=== PATIENT | male | born 1975 | race Caucasian/White ===

== ENCOUNTER 2018-03-24 13:07 | Day surgery (SDC) | payer BC ==
[~2018-03-24 13:07] MED LIST: Lactated Ringers 1,000 ML IV SCH; Midazolam 1 MG/ML 2 ML SDV ONE; Propofol 200 MG/20 ML SDV ONE; fentaNYL 100 MCG/2 ML SDV ONE
--- NOTE | 2018-03-24 13:36 | PCM.PREANE ---
Preanesthetic Assessment - Procedure Proposed Procedure: Colonoscopy and EGD - Anesthesia/Transfusion/Family Hx Anesthesia History: Prior Anesthesia Without Reaction Family History of Anesthesia Reaction: No Transfusion History: No Prior Transfusion(s) Intubation History: Unknown - Review of Systems General: Other (weight loss) Pulmonary: No Symptoms Cardiovascular: No Symptoms Gastrointestinal: Other (bloating) Neurological: No Symptoms Other: Reports: Depression, Anxiety - Physical Assessment NPO Status Date: 03/23/18 NPO Status Time: 22:00 Height: 6 ft Weight: 320 lb ASA Class: 2 Mental Status: Alert & Oriented x3 Airway Class: Mallampati = 4 Dentition: Reports: Normal Dentition Thyro-Mental Finger Breadths: 3 (high and prominent thyroid cartilage) Mouth Opening Finger Breadths: 2 (does not open widely) ROM/Head Extension: Limited/Partial (full neck) Lungs: Clear to Auscultation, Normal Respiratory Effort Cardiovascular: Regular Rate, Regular Rhythm, No Murmurs - Allergies Allergies/Adverse Reactions: Allergies Allergy/AdvReac Type Severity Reaction Status Date / Time No Known Allergies Allergy Verified 03/21/18 08:02 - Blood Blood Available: No Product(s) Available: None - Anesthesia Plan Pre-Op Medication Ordered: None - Acknowledgements Anesthesia Type Planned: MAC Pt an Appropriate Candidate for the Planned Anesthesia: Yes Alternatives and Risks of Anesthesia Discussed w Pt/Guardian: Yes Pt/Guardian Understands and Agrees with Anesthesia Plan: Yes PreAnesthesia Questionnaire Cardiovascular History: Reports: Other (See Below) Other Cardiovascular History: hx of murmur Gastrointestinal History: Reports: Irritable Bowel Syndrome Musculoskeletal History: Reports: Arthritis Psychiatric History: Reports: Anxiety, Depression, Other (See Below) Other Psychiatric History: agoraphobia Endocrine/Metabolic History: Reports: Obesity/BMI 30+ - Past Surgical History Head Surgeries/Procedures: Reports: None HEENT Surgical History: Reports: Other (See Below) Other HEENT Surgeries/Procedures: rt ear surgery x2, with implanted synthetic bone GI Surgical History: Reports: Appendectomy, Colonoscopy - SUBSTANCE USE Smoking Status *Q: Former Smoker Tobacco Use Within Last Twelve Months: No Recreational Drug Use History: No - HOME MEDS Home Medications: Home Meds Cholecalciferol (Vitamin D3) [Vitamin D3] 50,000 units PO ASDIRECTED 03/21/18 [ History] Venlafaxine HCl [Venlafaxine ER] 100 mg PO BID 03/21/18 [History] - CURRENT (IN HOUSE) MEDS Current Meds: Current Medications Lactated Ringer's (Ringers, Lactated) 1,000 mls @ 125 mls/hr IV ASDIRECTED MELVI Discontinued Medications Fentanyl (Sublimaze) Confirm Administered Dose 100 mcg .ROUTE .STK-MED ONE Stop: 03/24/18 10:45 Midazolam HCl (Versed 1 Mg/Ml) Confirm Administered Dose 2 mg .ROUTE .STK-MED ONE Stop: 03/24/18 10:45 Propofol (Diprivan 20 Ml) Confirm Administered Dose 200 mg .ROUTE .STK-MED ONE Stop: 03/24/18 10:45
[2018-03-24] MEDS ORDERED: Propofol 200 MG/20 ML SDV ONE ×2 (13:54→14:02)
--- NOTE | 2018-03-24 14:35 | PCM.POSTAN ---
POST ANESTHESIA ASSESSMENT - MENTAL STATUS Mental Status: Alert, Oriented - RESPIRATORY Respiratory Status: Respiratory Rate WNL, Airway Patent, O2 Saturation Stable - CARDIOVASCULAR CV Status: Pulse Rate WNL, Blood Pressure Stable - GASTROINTESTINAL GI Status: No Symptoms - POST OP HYDRATION Hydration Status: Adequate & Stable
--- NOTE | 2018-03-24 14:38 | PCM.OPNOTE ---
- General Post-Op/Procedure Note Date of Surgery/Procedure: 03/24/18 Operative Procedure(s): egd w bx. colonoscopy w snare polypectomy Findings: see dict [id number] Pre Op Diagnosis: BRBPR and wt loss Post-Op Diagnosis: Same Anesthesia Technique: Moderate Sedation Primary Surgeon: Lamine Joel Pathology: 1) egd bx 2) 2 mm sessile polyp at 1 ring distal to Ileocecal valve Complications: None Condition: Good
--- NOTE | 2018-03-24 14:51 | PCM48HPAN ---
Post Anesthesia Note - EVALUATION WITHIN 48HRS OF ANESTHETIC Vital Signs in Normal Range: Yes Patient Participated in Evaluation: Yes Respiratory Function Stable: Yes Airway Patent: Yes Cardiovascular Function Stable: Yes Hydration Status Stable: Yes Pain Control Satisfactory: Yes Nausea and Vomiting Control Satisfactory: Yes Mental Status Recovered: Yes Resp Rate: 21 - COMMENTS/OBSERVATIONS Free Text/Narrative:: no anesthesia problems
[2018-03-24 14:53] VITALS: BP 130/67
--- NOTE | 2018-03-24 16:07 | OR ---
SURGEON: Lamine Joel MD DATE OF PROCEDURE: 03/24/2018 PREOPERATIVE DIAGNOSES: 1. Weight loss. 2. Bright red blood per rectum. PROCEDURES PERFORMED: 1. EGD with biopsy. 2. Colonoscopy with snare polypectomy. PROCEDURE IN DETAIL: EGD: The patient was taken to the endoscopy room, and with the [employer], Diprivan was administered. A well-lubricated EGD scope was gently inserted through the oropharynx, down the esophagus, passing through the gastroesophageal junction, into the stomach. The mucosa was examined upon the passage. Any etiology will be noted. Once in the stomach, we continued to advance to the distal antrum, passed through the pylorus into the second portion of the duodenum. Again, the mucosa was examined for any abnormality and etiology. The scope was then retrieved back to the stomach and then retroflexed to look at the fundus of the stomach. If a biopsy was indicated, we will biopsy the antrum, body, and gastroesophageal junction. The air will be sucked out while the scope is retrieved to reduce the patient's discomfort. The patient tolerated the procedure well. There were no intraoperative complications. Dr. Joel was present through the whole procedure. Prior to surgery, a time-out had been called, the patient identified, procedure identified and antibiotic administered. The patient was taken to the endoscopy room. A time out was called, patient identified, and procedure identified. Diprivan was then administrated. Patient went from awake to sleep, hearing doctor talking or door closing is normal. Perineum inspection and digital examination were then performed. A well- lubricated colonoscope was gently inserted through the rectum, advanced past the rectosigmoid junction, the descending colon, splenic flexure, transverse colon, hepatic flexure, ascending colon, arrived to the cecum. Cecum was identified as dictated in the finding. Then the scope was carefully withdrawn while attention was paid to the mucosal surface for any abnormality. Air will be sucked out during the scope withdrawal. At the rectum, retroflexed to examine any rectal diseases, fistula or hemorrhoids. During mucosal examination, abnormality or polyp encountered. Using snare equipment, the abnormality or the polyp was then snared off using electrocautery. The Patient tolerated procedure well. There were no intraoperative complications, and Dr. Joel was present throughout the whole procedure. EGD FINDINGS: 1. The patient is easily sedated with [employer] and Diprivan. The patient is soundly snoring. 2. The patient's oropharynx and proximal esophagus are free of disease, stricture, or inflammation. Distal esophagus at GE junction at 40 shows mild salmon-colored change consistent with mild acid reflux. Stomach rugae is normal in appearance. There is no food, bile, blood, or ulcer observed. Antrum is a little bit inflamed. Again, the duodenum was grossly normal. Scope retrieved back to the stomach, retroflexed to look at the fundus of stomach. There was no hiatal hernia. Biopsy done at antrum, body, and GE junction at 40 and sucked out the air while scope pulling out. COLONOSCOPY FINDINGS: 1. The patient is easily sedated with [employer] and Diprivan. The patient is soundly snoring. 2. The patient's bowel prep is marginally acceptable, very bad bowel prep. This is a compromised study because the margin is almost not acceptable. There is no solid stool but there is very thick liquid stool coating the mucosa and compromised study. It is a very compromised study. Cecum indicated by ileocecal fold, one-to-one indentation. Light emittance is not observed. Appendix orifice is observed. The mucosa examined with scope pulling out with constant irrigation. The patient has 2 mm sessile polyp, about one ring distal to the ileocecal fold, and it was removed with snare polypectomy and captured and sent for pathology. Otherwise, the patient does not have other disease. No diverticulosis, polyp, mass, growth, inflammation, stricture, ulceration, AV malformation. Has no other polyp other than the one that we captured. The patient has mild internal hemorrhoids and has one, like a large skin tag in the anal opening. It is not an external hemorrhoid, a large skin tag. This patient would benefit from repeat colonoscopy 10 years from today or if the pathology of the polyp indicated otherwise or if clinically indicated otherwise. MARIAN / GILBERTO /[id number]
== END 2018-03-24 14:55 | disposition home or self-care (01) ==
LOC: MW.SDS 13:07
PROVIDERS: ATTEND Surgery
DX: R63.4 Abnormal weight loss (principal); K62.5 Hemorrhage of anus and rectum; K63.5 Polyp of colon; K64.8 Other hemorrhoids; K64.4 Residual hemorrhoidal skin tags; K29.50 Unspecified chronic gastritis without bleeding; K21.0 Gastro-esophageal reflux disease with esophagitis; Z79.899 Other long term (current) drug therapy
CPT/HCPCS: 43239; 45385; J2250; J3010; J7120; J2704

== ENCOUNTER 2018-05-12 12:21 | Day surgery (SDC) | payer BC ==
[~2018-05-12 12:21] MED LIST changes: +Bupivacaine 25%/EPINEPHrine/PF 30 ML ONE; +Clindamycin Phosphate in D5W 600 MG in Premix Bag 1 BAG IV ONE; +Lidocaine 2% Jelly 30 ML Tube ONE; -Midazolam 1 MG/ML 2 ML SDV ONE; -Propofol 200 MG/20 ML SDV ONE; -fentaNYL 100 MCG/2 ML SDV ONE
[2018-05-12] MEDS ORDERED: Clindamycin Phosphate in D5W 50 ML ONE (12:26)
[2018-05-12] MEDS ORDERED: Ondansetron 4 MG/2 ML SDV ONE (12:44)
[2018-05-12] MEDS ORDERED: Propofol 200 MG/20 ML SDV ONE (12:44)
[2018-05-12] MEDS ORDERED: fentaNYL 100 MCG/2 ML SDV ONE (12:44)
[2018-05-12] MEDS ORDERED: Midazolam 1 MG/ML 2 ML SDV ONE (12:44)
[2018-05-12] MEDS ORDERED: Dexamethasone 4 MG/ML 5 ML MDV ONE (12:46)
--- NOTE | 2018-05-12 12:47 | PCM.PREANE ---
Preanesthetic Assessment - Anesthesia/Transfusion/Family Hx Anesthesia History: Prior Anesthesia Without Reaction Family History of Anesthesia Reaction: No Transfusion History: No Prior Transfusion(s) Intubation History: Unknown - Review of Systems General: No Symptoms Pulmonary: No Symptoms Cardiovascular: No Symptoms Gastrointestinal: No Symptoms Neurological: No Symptoms Other: Reports: None - Physical Assessment NPO Status Date: 05/11/18 O2 Sat by Pulse Oximetry: 96 Respiratory Rate: 15 Vital Signs: Last Vital Signs Temp 36.5 C 05/12/18 12:30 Pulse 55 L 05/12/18 12:30 Resp 15 05/12/18 12:30 BP 107/56 L 05/12/18 12:30 Pulse Ox 96 05/12/18 12:30 Height: 1.83 m Weight: 141.974 kg ASA Class: 2 Mental Status: Alert & Oriented x3 Airway Class: Mallampati = 3 Dentition: Reports: Normal Dentition ROM/Head Extension: Full Lungs: Clear to Auscultation, Normal Respiratory Effort Cardiovascular: Regular Rate, Regular Rhythm - Allergies Allergies/Adverse Reactions: Allergies Allergy/AdvReac Type Severity Reaction Status Date / Time No Known Allergies Allergy Verified 05/05/18 13:16 - Blood Blood Available: No - Anesthesia Plan Pre-Op Medication Ordered: None - Acknowledgements Anesthesia Type Planned: General Anesthesia Pt an Appropriate Candidate for the Planned Anesthesia: Yes Alternatives and Risks of Anesthesia Discussed w Pt/Guardian: Yes Pt/Guardian Understands and Agrees with Anesthesia Plan: Yes Additional Comments: PMH: MO PLAN: prone, GET PreAnesthesia Questionnaire HEENT History: Reports: Hard of Hearing Other HEENT History: [place] in right ear Cardiovascular History: Reports: Other (See Below) Other Cardiovascular History: hx of murmur Gastrointestinal History: Reports: Irritable Bowel Syndrome Musculoskeletal History: Reports: Arthritis Neurological History: Reports: Other (See Below) Other Neuro History: degenerative disc disease in lower back Psychiatric History: Reports: Anxiety, Depression, Panic Attack, Other (See Below) Other Psychiatric History: agoraphobia Endocrine/Metabolic History: Reports: Obesity/BMI 30+ - Past Surgical History Head Surgeries/Procedures: Reports: None HEENT Surgical History: Reports: Other (See Below) Other HEENT Surgeries/Procedures: rt ear surgery x2, with implanted synthetic bone GI Surgical History: Reports: Appendectomy, Colonoscopy - SUBSTANCE USE Smoking Status *Q: Never Smoker Recreational Drug Use History: No - HOME MEDS Home Medications: Home Meds Cholecalciferol (Vitamin D3) [Vitamin D3] 50,000 units PO ASDIRECTED 03/21/18 [ History] Venlafaxine HCl [Venlafaxine ER] 100 mg PO BID 03/21/18 [History] Diclofenac Sodium [Voltaren] 50 mg PO ASDIRECTED PRN 05/05/18 [History] - CURRENT (IN HOUSE) MEDS Current Meds: Current Medications Lactated Ringer's (Ringers, Lactated) 1,000 mls @ 125 mls/hr IV ASDIRECTED MELVI Discontinued Medications Gelatin (Gelfoam Size 100) Confirm Administered Dose 1 each TOP .STK-MED ONE Stop: 05/12/18 11:59 Clindamycin Phosphate 600 mg/ (Premix) 50 mls @ 100 mls/hr IV ONETIME ONE Stop: 05/12/18 05:29 Last Admin: 05/12/18 12:26 Dose: 100 mls/hr Bupivacaine HCl/Epinephrine Bitart (Sensorc Mpf 0.25%-Epi 1:[id number]) Confirm Administered Dose 30 mls @ as directed .ROUTE .STK-MED ONE Stop: 05/12/18 11:59 Clindamycin Phosphate (Cleocin In D5w) Confirm Administered Dose 50 mls @ as directed .ROUTE .STK-MED ONE Stop: 05/12/18 12:27 Lidocaine HCl (Xylocaine 2% Jelly) Confirm Administered Dose 30 ml .ROUTE .STK- MED ONE Stop: 05/12/18 11:59
[2018-05-12] MEDS ORDERED: Rocuronium 10 MG/ML 10 ML Syringe ONE (13:02)
--- NOTE | 2018-05-12 14:08 | PCM.OPNOTE ---
- General Post-Op/Procedure Note Date of Surgery/Procedure: 05/12/18 Operative Procedure(s): anal tag excisional bx Findings: a large broad base anal tag excised en bloc, 1.5 cm length and 0.4 cm diameter.[id number] Pre Op Diagnosis: anal tag Post-Op Diagnosis: Same Anesthesia Technique: General ET Tube Primary Surgeon: Lamine Joel Pathology: sent Complications: None Condition: Good
--- NOTE | 2018-05-12 15:07 | PCM48HPAN ---
Post Anesthesia Note - EVALUATION WITHIN 48HRS OF ANESTHETIC Vital Signs in Normal Range: Yes Patient Participated in Evaluation: Yes Respiratory Function Stable: Yes Airway Patent: Yes Cardiovascular Function Stable: Yes Hydration Status Stable: Yes Pain Control Satisfactory: Yes Nausea and Vomiting Control Satisfactory: Yes Mental Status Recovered: Yes Resp Rate: 16
[2018-05-12 15:21] VITALS: BP 103/55
--- NOTE | 2018-05-12 17:38 | OR ---
SURGEON: Lamine Joel MD DATE OF PROCEDURE: 05/12/2018 PREOPERATIVE DIAGNOSIS: Anal Tag. POSTOPERATIVE DIAGNOSIS: Anal Tag. PROCEDURE PERFORMED: Excisional biopsy. COMPLICATIONS: None. FINDING: Very large anal tag, length about 1.5 cm and diameter 0.4 cm, removed en bloc. PROCEDURE IN DETAIL: The patient was taken to operating room, placed in supine position. Upon induction of general endotracheal anesthesia, the patient was re-positioned into a left decubitus position, left side down, right side up, and used a sand bag. The patient was then prepped and draped in sterile fashion. Time-out was being called, the patient identified, procedure identified, antibiotic given. Procedure was then started. Local anesthetic 1% lidocaine was infiltrated around the anal tag. Anal tag is at the distance around 7 o'clock in the prone position, is 1.5 cm in length and 0.4 cm in diameter. Using a 15 blade, was removed and as it is broad base, he has some bleeding and this was then closed with 3-0 Vicryl. The patient was then repositioned, awakened, extubated, and transferred to recovery in hemodynamically stable condition. The patient tolerated the procedure well. There were no intraoperative complications. MARIAN / GILBERTO /[id number]
== END 2018-05-12 15:15 | disposition home or self-care (01) ==
LOC: MW.SDS 12:21
PROVIDERS: ATTEND Surgery
DX: K64.4 Residual hemorrhoidal skin tags (principal); E66.9 Obesity, unspecified; F41.9 Anxiety disorder, unspecified; F32.9 Major depressive disorder, single episode, unspecified; Z87.891 Personal history of nicotine dependence; Z79.899 Other long term (current) drug therapy
CPT/HCPCS: 46220; J1100; J2250; J2405; J2704; J3010; J3490; J7120

== ENCOUNTER 2021-02-09 14:29 | Observation (INO) | payer MEDICARE, OTHER ==
[2021-02-09] MEDS ORDERED: Sodium Chloride 0.9% 10 ML Syringe FLUSH PRN (14:37)
[2021-02-09] MEDS ORDERED: Sodium Chloride 0.9% 2.5 ML Syringe FLUSH PRN (14:37)
[2021-02-09] MEDS ORDERED: Ondansetron 4 MG/2 ML SDV IVPUSH ONE (14:37)
[2021-02-09] MEDS ORDERED: HYDROmorphone 1 MG/ML Syringe IVPUSH ONE ×2 (14:37→17:14)
[2021-02-09] MEDS ORDERED: Sodium Chloride 0.9% 1,000 ML IV ONE (14:37)
--- NOTE | 2021-02-09 14:42 | EDM.PDOC ---
ED HPI GENERAL MEDICAL PROBLEM - General Chief Complaint: Abdominal Pain Stated Complaint: ABDOMINAL PAIN Time Seen by Provider: 02/09/21 14:35 Source of Information: Reports: Patient History Limitations: Reports: No Limitations - History of Present Illness INITIAL COMMENTS - FREE TEXT/NARRATIVE: 45-year-old male past medical history anxiety, depression, recent right shoulder surgery 1 week ago in [place] presents for abdominal pain, no bowel movement in 69 hours. Patient notes that he has been on narcotic pain medication from his recent surgery. He has been on multiple stool softeners. He feels nausea but has not had any vomiting. He describes his abdominal pain is diffuse, coming in waves every 10 to 15 minutes, associated with nausea. He notes a prior surgical history of appendectomy that was complicated by ileus. This was several years ago Right Upper Abdomen Pain Score (Numeric/FACES): 6 - Related Data Allergies Allergy/AdvReac Type Severity Reaction Status Date / Time No Known Allergies Allergy Verified 02/09/21 14:36 Home Meds: Home Meds Hydrocodone/Acetaminophen [Vicodin Hp 10-300 mg Tablet] 1 dose PO ASDIRECTED 02/09/21 [History] ondansetron HCL [Zofran] 4 mg PO ASDIRECTED 02/09/21 [History] oxyCODONE 5 mg PO ASDIRECTED 02/09/21 [History] Past Medical History HEENT History: Reports: Hard of Hearing Other HEENT History: [place] in right ear Cardiovascular History: Reports: Other (See Below) Other Cardiovascular History: hx of murmur Gastrointestinal History: Reports: Irritable Bowel Syndrome Musculoskeletal History: Reports: Arthritis Neurological History: Reports: Other (See Below) Other Neuro History: degenerative disc disease in lower back Psychiatric History: Reports: Anxiety, Depression, Panic Attack, Other (See Below) Other Psychiatric History: agoraphobia Endocrine/Metabolic History: Reports: Obesity/BMI 30+ - Past Surgical History Head Surgeries/Procedures: Reports: None HEENT Surgical History: Reports: Other (See Below) Other HEENT Surgeries/Procedures: rt ear surgery x2, with implanted synthetic bone GI Surgical History: Reports: Appendectomy, Colonoscopy ED ROS GENERAL - Review of Systems Review Of Systems: Comprehensive ROS is negative, except as noted in HPI. ED EXAM, GENERAL - Physical Exam Exam: See Below Exam Limited By: No Limitations General Appearance: Alert, WD/WN, No Apparent Distress Head: Atraumatic, Normocephalic Neck: Normal Inspection Respiratory/Chest: No Respiratory Distress, Lungs Clear, Normal Breath Sounds, No Accessory Muscle Use Cardiovascular: Normal Peripheral Pulses, Regular Rate, Rhythm GI/Abdominal: Other (mildly distended, diffusely TTP with guarding) Extremities: Normal Inspection Neurological: Alert Psychiatric: Normal Affect, Normal Mood, Anxious Skin Exam: Warm, Dry, Intact, Normal Color #1 Interpretation EKG Date: 02/09/21 Time: 15:47 Rhythm: NSR Rate (Beats/Min): 57 [place]: Normal P-Wave: Present QRS: Normal ST-T: Normal QT: Normal [place]/PQ Interval: 163 Comparison: NA - No Prior EKG EKG Interpretation Comments: normal EKG Course - Vital Signs Last Recorded V/S: Last Vital Signs Temp 97.3 F 02/09/21 14:38 Pulse 63 02/09/21 14:38 Resp 16 02/09/21 14:38 BP 135/91 H 02/09/21 14:38 Pulse Ox 100 02/09/21 14:38 - Orders/Labs/Meds Orders: Active Orders 24 hr Category Date Time Status EKG Documentation Completion [RC] STAT Care 02/09/21 14:37 Active Gastrointestinal Tube Mgmt [RC] ASDIRECTED Care 02/09/21 18:08 Active Abdomen 1V Upright [CR] Stat Exams 02/09/21 18:08 Ordered Chest 1V Frontal [CR] Stat Exams 02/09/21 18:08 Ordered Sodium Chloride 0.9% [Saline Flush] Med 02/09/21 14:37 Active 10 ml FLUSH ASDIRECTED PRN Sodium Chloride 0.9% [Saline Flush] Med 02/09/21 14:37 Active 2.5 ml FLUSH ASDIRECTED PRN NG [Nasogastric Orogastric Tube Insertion] [OM.PC] Stat Oth 02/09/21 18:08 Ordered Saline Lock Insert [OM.PC] Stat Oth 02/09/21 14:38 Ordered Medication Orders Sodium Chloride (Sodium Chloride 0.9% 10 Ml Syringe) 10 ml FLUSH ASDIRECTED PRN PRN Reason: Keep Vein Open Last Admin: 02/09/21 14:51 Dose: 10 ml Documented by: GABE Sodium Chloride (Sodium Chloride 0.9% 2.5 Ml Syringe) 2.5 ml FLUSH ASDIRECTED PRN PRN Reason: Keep Vein Open Last Admin: 02/09/21 14:52 Dose: 2.5 ml Documented by: GABE Labs: Laboratory Tests 02/09/21 02/09/21 02/09/21 Range/Units 14:55 14:55 15:23 WBC 11.69 H (4.0-11.0) K/uL RBC 5.54 (4.50-5.90) M/uL Hgb 16.8 (13.0-17.0) g/dL Hct 50.1 H (38.0-50.0) % MCV 90.4 (80.0-98.0) fL MCH 30.3 (27.0-32.0) pg MCHC 33.5 (31.0-37.0) g/dL RDW Std Deviation 45.7 (28.0-62.0) fl RDW Coeff of Rosalino 14 (11.0-15.0) % Plt Count 228 (150-400) K/uL MPV 10.30 (7.40-12.00) fL Neut % (Auto) 77.9 (48.0-80.0) % Lymph % (Auto) 12.7 L (16.0-40.0) % [place] % (Auto) 8.6 (0.0-15.0) % Eos % (Auto) 0.6 (0.0-7.0) % Baso % (Auto) 0.2 (0.0-1.5) % Neut # (Auto) 9.1 H (1.4-5.7) K/uL Lymph # (Auto) 1.5 (0.6-2.4) K/uL [place] # (Auto) 1.0 H (0.0-0.8) K/uL Eos # (Auto) 0.1 (0.0-0.7) K/uL Baso # (Auto) 0.0 (0.0-0.1) K/uL Nucleated RBC % 0.0 /100WBC Nucleated RBCs # 0 K/uL INR APTT (18.6-31.3) SEC Sodium 135 L (136-148) mmol/L Potassium 4.4 (3.5-5.1) mmol/L Chloride 100 (98-107) mmol/L Carbon Dioxide 24.5 (21.0-32.0) mmol/L BUN 13 (7.0-18.0) mg/dL Creatinine 1.6 H (0.8-1.3) mg/dL Est Cr Clr Drug Dosing 62.65 mL/min Estimated GFR (MDRD) 46.6 ml/min Glucose 125 H (74-106) mg/dL Lactic Acid 1.9 (0.4-2.0) mmol/L Calcium 9.9 (8.5-10.1) mg/dL Magnesium 2.2 (1.8-2.4) mg/dL Total Bilirubin 1.0 (0.2-1.0) mg/dL AST 23 (15-37) IU/L ALT 44 (14-63) IU/L Alkaline Phosphatase 72 (46-116) U/L Total Protein 7.7 (6.4-8.2) g/dL Albumin 3.8 (3.4-5.0) g/dL Globulin 3.9 (2.6-4.0) g/dL Albumin/Globulin Ratio 1.0 (0.9-1.6) Lipase 189 (73-393) U/L 02/09/21 Range/Units 15:23 WBC (4.0-11.0) K/uL RBC (4.50-5.90) M/uL Hgb (13.0-17.0) g/dL Hct (38.0-50.0) % MCV (80.0-98.0) fL MCH (27.0-32.0) pg MCHC (31.0-37.0) g/dL RDW Std Deviation (28.0-62.0) fl RDW Coeff of [place] (11.0-15.0) % Plt Count (150-400) K/uL MPV (7.40-12.00) fL Neut % (Auto) (48.0-80.0) % Lymph % (Auto) (16.0-40.0) % [place] % (Auto) (0.0-15.0) % Eos % (Auto) (0.0-7.0) % Baso % (Auto) (0.0-1.5) % Neut # (Auto) (1.4-5.7) K/uL Lymph # (Auto) (0.6-2.4) K/uL [place] # (Auto) (0.0-0.8) K/uL Eos # (Auto) (0.0-0.7) K/uL Baso # (Auto) (0.0-0.1) K/uL Nucleated RBC % /100WBC Nucleated RBCs # K/uL INR 1.00 APTT 28.0 (18.6-31.3) SEC Sodium (136-148) mmol/L Potassium (3.5-5.1) mmol/L Chloride (98-107) mmol/L Carbon Dioxide (21.0-32.0) mmol/L BUN (7.0-18.0) mg/dL Creatinine (0.8-1.3) mg/dL Est Cr Clr Drug Dosing mL/min Estimated GFR (MDRD) ml/min Glucose (74-106) mg/dL Lactic Acid (0.4-2.0) mmol/L Calcium (8.5-10.1) mg/dL Magnesium (1.8-2.4) mg/dL Total Bilirubin (0.2-1.0) mg/dL AST (15-37) IU/L ALT (14-63) IU/L Alkaline Phosphatase (46-116) U/L Total Protein (6.4-8.2) g/dL Albumin (3.4-5.0) g/dL Globulin (2.6-4.0) g/dL Albumin/Globulin Ratio (0.9-1.6) Lipase (73-393) U/L Meds: Medications Generic Name Dose Route Start Last Admin Trade Name Freq PRN Reason Stop Dose Admin Sodium Chloride 10 ml 02/09/21 14:37 02/09/21 14:51 Sodium Chloride 0.9% 10 Ml Syringe FLUSH 10 ml ASDIRECTED PRN Administration Keep Vein Open Sodium Chloride 2.5 ml 02/09/21 14:37 02/09/21 14:52 Sodium Chloride 0.9% 2.5 Ml Syringe FLUSH 2.5 ml ASDIRECTED PRN Administration Keep Vein Open Discontinued Medications Generic Name Dose Route Start Last Admin Trade Name Freq PRN Reason Stop Dose Admin Hydromorphone HCl 1 mg 02/09/21 14:37 02/09/21 14:50 Hydromorphone 1 Mg/Ml Syringe IVPUSH 02/09/21 14:38 1 mg ONETIME ONE Administration Hydromorphone HCl 1 mg 02/09/21 17:14 02/09/21 17:28 Hydromorphone 1 Mg/Ml Syringe IVPUSH 02/09/21 17:15 1 mg ONETIME ONE Administration Sodium Chloride 1,000 mls @ 999 mls/hr 02/09/21 14:37 02/09/21 14:49 Normal Saline IV 02/09/21 15:37 999 mls/hr .Bolus ONE Administration Iopamidol 100 ml 02/09/21 16:43 02/09/21 16:44 Iopamidol 755 Mg/Ml 500 Ml Multipack Bottle IVPUSH 02/09/21 16:44 100 ml ONETIME ONE Administration Ondansetron HCl 4 mg 02/09/21 14:37 02/09/21 14:48 Ondansetron 4 Mg/2 Ml Sdv IVPUSH 02/09/21 14:38 4 mg ONETIME ONE Administration - Re-Assessments/Exams Free Text/Narrative Re-Assessment/Exam: 02/09/21 14:41 We will get labs including a lactate. Will get CTA imaging of the abdomen and pelvis to assess for more likely SBO versus ileus, less likely mesenteric ischemia 02/09/21 18:00 CT scan is remarkable for SBO versus ileus. Will discuss case with general surgeon Dr. Joel. 02/09/21 18:22 Dr. Joel agrees to consult. Will admit to medicine. NGT placed Departure - Departure Time of Disposition: 18:22 Disposition: Admitted As Inpatient 64 Condition: Good Clinical Impression: Ileus - Discharge Information Referrals: Sobia Smith DO [Primary Care Provider] - Forms: ED Department Discharge Sepsis Event Note (ED) - Focused Exam Vital Signs: Vital Signs Temp Pulse Resp BP Pulse Ox 02/09/21 14:38 97.3 F 63 16 135/91 H 100 - My Orders Last 24 Hours: My Active Orders 02/09/21 14:37 EKG Documentation Completion [RC] STAT Sodium Chloride 0.9% [Saline Flush] 10 ml FLUSH ASDIRECTED PRN Sodium Chloride 0.9% [Saline Flush] 2.5 ml FLUSH ASDIRECTED PRN 02/09/21 14:38 Saline Lock Insert [OM.PC] Stat 02/09/21 18:08 Gastrointestinal Tube Mgmt [RC] ASDIRECTED Abdomen 1V Upright [CR] Stat Chest 1V Frontal [CR] Stat NG [Nasogastric Orogastric Tube Insertion] [OM.PC] Stat - Assessment/Plan Last 24 Hours: My Active Orders 02/09/21 14:37 EKG Documentation Completion [RC] STAT Sodium Chloride 0.9% [Saline Flush] 10 ml FLUSH ASDIRECTED PRN Sodium Chloride 0.9% [Saline Flush] 2.5 ml FLUSH ASDIRECTED PRN 02/09/21 14:38 Saline Lock Insert [OM.PC] Stat 02/09/21 18:08 Gastrointestinal Tube Mgmt [RC] ASDIRECTED Abdomen 1V Upright [CR] Stat Chest 1V Frontal [CR] Stat NG [Nasogastric Orogastric Tube Insertion] [OM.PC] Stat
[2021-02-09 15:25] LABS: CARBON DIOXIDE,CO2 24.5 mmol/L (21.0-32.0); POTASSIUM,K 4.4 mmol/L (3.5-5.1)
[2021-02-09] MEDS ORDERED: Iopamidol 755 MG/ML 500 ML Multipack Bottle IVPUSH ONE (16:43)
--- NOTE | 2021-02-09 17:57 | CT ---
Indication: Abdominal pain possible small-bowel obstruction versus ischemia shoulder surgery 2 days ago Technique: CT abdomen pelvis angio. 100 mL Isovue 370 Comparison: No comparison Findings: Heart size is normal. No pericardial effusion. Basilar atelectasis. Fatty liver gallbladder pancreas adrenal glands spleen unremarkable. Symmetric enhancement of both kidneys. No hydronephrosis Abundant stool in the colon appendectomy change. There is mildly prominent fluid filled small bowel within the left abdomen . There is no discrete transition point. There is no pneumatosis no inflammatory change no free air no portal venous gas. SMA celiac artery TAISHA renal arteries, iliac arteries appear patent. Urinary bladder unremarkable prostate gland unremarkable. No suspicious bony lesions. Impression: 1. Mildly prominent fluid-filled small bowel within the left abdomen no transition point identified. Findings probably reflect ileus vs low-grade obstruction. No bowel wall thickening inflammatory change pneumatosis present. Patent mesenteric vessels. 2. Abundant stool in the colon. 3. Fatty liver. Please note that all CT scans at this facility use dose modulation, iterative reconstruction, and/or weight-based dosing when appropriate to reduce radiation dose to as low as reasonably achievable. Dictated by Jennifer Otero MD @ 02/09/2021 5:55:[address] Jennifer Otero @ Feb 09 2021 5:55PM
[2021-02-09] MEDS ORDERED: LORazepam 2 MG/ML SDV IVPUSH ONE (18:49)
[2021-02-09] MEDS ORDERED: Albuterol/Ipratropium 3.0-0.5 MG/3 ML Neb Soln NEB PRN (19:04)
[2021-02-09] MEDS ORDERED: Ondansetron 4 MG/2 ML SDV IVPUSH PRN (19:09)
[2021-02-09] MEDS ORDERED: Morphine 2 MG/ML SYRINGE IVPUSH PRN (19:09)
--- NOTE | 2021-02-09 19:12 | PCM.HP.2 ---
H&P History of Present Illness - General Date of Service: 02/09/21 Admit Problem/Dx: Admission Diagnosis/Problem Admission Diagnosis/Problem Ileus - History of Present Illness Initial Comments - Free Text/Narative: 45-year-old male past medical history anxiety, depression, agoraphobia, recent right shoulder surgery on Wednesday in [place] presents for abdominal pain, no bowel movement in past 3 days. Patient notes that he has been on opioids for pain control from his recent surgery. He has been on multiple stool softeners but they have not really helped with passing any stool. Patient feels nauseous but so far has not had any episode of vomiting, patient denies passing any gas as well. Patient is complaining of abdominal pain he describes his abdominal pain is diffuse, coming in waves every 10 to 15 minutes, associated with nausea. Patient states that he is very prone to having ileus and has it in the past after appendectomy he was put on pain pills. In the ER abdominal CT was done which showed mildly prominent fluid-filled small bowel within the left abdomen with no transition point identified. Findings probably reflective of ileus versus low-grade obstruction no bowel wall thickening inflammatory change pneumonitis is present patent mesenteric vessels. Abundant stool was noted in the colon, fatty liver was noted as well. Dr. Fuller was consulted in the ER who recommended NG tube insertion on intermittent suction and admit to medicine for further management. Patient's lab work showed mild leukocytosis and slight renal insufficiency, patient is being admitted for further management. Patient schultz had an episode of severe anxiety in the ER after the NG tube was put in so he received IV Ativan which helped to calm him down Right Upper Abdomen Pain Score (Numeric/FACES): 6 - Related Data Allergies/Adverse Reactions: Allergies Allergy/AdvReac Type Severity Reaction Status Date / Time No Known Allergies Allergy Verified 02/09/21 20:23 Home Medications: Home Meds Hydrocodone/Acetaminophen [Vicodin Hp 10-300 mg Tablet] 1 dose PO ASDIRECTED 02/09/21 [History] ondansetron HCL [Zofran] 4 mg PO ASDIRECTED 02/09/21 [History] oxyCODONE 5 mg PO ASDIRECTED 02/09/21 [History] Past Medical History HEENT History: Reports: Hard of Hearing Other HEENT History: [place] in right ear Cardiovascular History: Reports: Other (See Below) Other Cardiovascular History: hx of murmur Gastrointestinal History: Reports: Irritable Bowel Syndrome Musculoskeletal History: Reports: Arthritis Neurological History: Reports: Other (See Below) Other Neuro History: degenerative disc disease in lower back Psychiatric History: Reports: Anxiety, Depression, Panic Attack, Other (See Below) Other Psychiatric History: agoraphobia Endocrine/Metabolic History: Reports: Obesity/BMI 30+ - Infectious Disease History Infectious Disease History: Reports: None - Past Surgical History Head Surgeries/Procedures: Reports: None HEENT Surgical History: Reports: Other (See Below) Other HEENT Surgeries/Procedures: rt ear surgery x2, with implanted synthetic bone GI Surgical History: Reports: Appendectomy, Colonoscopy Social & Family History - Tobacco Use Tobacco Use Status *Q: Never Tobacco User - Caffeine Use Caffeine Use: Reports: None - Recreational Drug Use Recreational Drug Use: Yes Recreational Drug Type: Reports: Marijuana/Hashish Recreational Drug Use Frequency: Daily H&P Review of Systems - Review of Systems: Review Of Systems: See Below General: Denies: Fever, Chills, Malaise Pulmonary: Denies: Shortness of Breath, Wheezing Cardiovascular: Denies: Chest Pain, Palpitations, Dyspnea on Exertion Gastrointestinal: Reports: Abdominal Pain, Anorexia, Constipation, Decreased Appetite, Distension, Nausea. Denies: Black Stool, Bloody Stool, Diarrhea, Flatus, Hematemesis, Stool Incontinence, Vomiting Genitourinary: Denies: Dysuria, Frequency, Burning Musculoskeletal: Denies: Neck Pain, Shoulder Pain, Arm Pain Skin: Denies: Cyanosis, Jaundice, Mottled Psychiatric: Reports: Depression, Mood Lability, Anxiety. Denies: Confusion, Hallucinations, Hallucinations (Visual) Neurological: Denies: Confusion, Dizziness, Headache, Numbness Exam - Exam Exam: See Below - Vital Signs Vital Signs: Last Vital Signs Temp 36.3 C 02/09/21 14:38 Pulse 63 02/09/21 14:38 Resp 16 02/09/21 14:38 BP 135/91 H 02/09/21 14:38 Pulse Ox 100 02/09/21 14:38 Weight: 135.171 kg - Exam HEENT: Conjunctiva Clear Neck: Supple, Trachea Midline Lungs: Clear to Auscultation, Normal Respiratory Effort Cardiovascular: Regular Rate, Regular Rhythm GI/Abdominal Exam: Non-Tender, Distended, Abnormal Bowel Sounds. No: Normal Bowel Sounds, Soft, No Distention, Guarding, Rigid, Tender, Hepatomegaly, Splenomegaly Back Exam: Normal Inspection, Full Range of Motion. No: CVA Tenderness (L), CVA Tenderness (R), Decreased Range of Motion Extremities: Normal Inspection - Patient Data Lab Results Last 24 hrs: Laboratory Results - last 24 hr 02/09/21 02/09/21 02/09/21 Range/Units 14:55 14:55 15:23 WBC 11.69 H (4.0-11.0) K/uL RBC 5.54 (4.50-5.90) M/uL Hgb 16.8 (13.0-17.0) g/dL Hct 50.1 H (38.0-50.0) % MCV 90.4 (80.0-98.0) fL MCH 30.3 (27.0-32.0) pg MCHC 33.5 (31.0-37.0) g/dL RDW Std Deviation 45.7 (28.0-62.0) fl RDW Coeff of [place] 14 (11.0-15.0) % Plt Count 228 (150-400) K/uL MPV 10.30 (7.40-12.00) fL Neut % (Auto) 77.9 (48.0-80.0) % Lymph % (Auto) 12.7 L (16.0-40.0) % [place] % (Auto) 8.6 (0.0-15.0) % Eos % (Auto) 0.6 (0.0-7.0) % Baso % (Auto) 0.2 (0.0-1.5) % Neut # (Auto) 9.1 H (1.4-5.7) K/uL Lymph # (Auto) 1.5 (0.6-2.4) K/uL [place] # (Auto) 1.0 H (0.0-0.8) K/uL Eos # (Auto) 0.1 (0.0-0.7) K/uL Baso # (Auto) 0.0 (0.0-0.1) K/uL Nucleated RBC % 0.0 /100WBC Nucleated RBCs # 0 K/uL INR APTT (18.6-31.3) SEC Sodium 135 L (136-148) mmol/L Potassium 4.4 (3.5-5.1) mmol/L Chloride 100 (98-107) mmol/L Carbon Dioxide 24.5 (21.0-32.0) mmol/L BUN 13 (7.0-18.0) mg/dL Creatinine 1.6 H (0.8-1.3) mg/dL Est Cr Clr Drug Dosing 62.65 mL/min Estimated GFR (MDRD) 46.6 ml/min Glucose 125 H (74-106) mg/dL Lactic Acid 1.9 (0.4-2.0) mmol/L Calcium 9.9 (8.5-10.1) mg/dL Magnesium 2.2 (1.8-2.4) mg/dL Total Bilirubin 1.0 (0.2-1.0) mg/dL AST 23 (15-37) IU/L ALT 44 (14-63) IU/L Alkaline Phosphatase 72 (46-116) U/L Total Protein 7.7 (6.4-8.2) g/dL Albumin 3.8 (3.4-5.0) g/dL Globulin 3.9 (2.6-4.0) g/dL Albumin/Globulin Ratio 1.0 (0.9-1.6) Lipase 189 (73-393) U/L 02/09/21 Range/Units 15:23 WBC (4.0-11.0) K/uL RBC (4.50-5.90) M/uL Hgb (13.0-17.0) g/dL Hct (38.0-50.0) % MCV (80.0-98.0) fL MCH (27.0-32.0) pg MCHC (31.0-37.0) g/dL RDW Std Deviation (28.0-62.0) fl RDW Coeff of [place] (11.0-15.0) % Plt Count (150-400) K/uL MPV (7.40-12.00) fL Neut % (Auto) (48.0-80.0) % Lymph % (Auto) (16.0-40.0) % [place] % (Auto) (0.0-15.0) % Eos % (Auto) (0.0-7.0) % Baso % (Auto) (0.0-1.5) % Neut # (Auto) (1.4-5.7) K/uL Lymph # (Auto) (0.6-2.4) K/uL [place] # (Auto) (0.0-0.8) K/uL Eos # (Auto) (0.0-0.7) K/uL Baso # (Auto) (0.0-0.1) K/uL Nucleated RBC % /100WBC Nucleated RBCs # K/uL INR 1.00 APTT 28.0 (18.6-31.3) SEC Sodium (136-148) mmol/L Potassium (3.5-5.1) mmol/L Chloride (98-107) mmol/L Carbon Dioxide (21.0-32.0) mmol/L BUN (7.0-18.0) mg/dL Creatinine (0.8-1.3) mg/dL Est Cr Clr Drug Dosing mL/min Estimated GFR (MDRD) ml/min Glucose (74-106) mg/dL Lactic Acid (0.4-2.0) mmol/L Calcium (8.5-10.1) mg/dL Magnesium (1.8-2.4) mg/dL Total Bilirubin (0.2-1.0) mg/dL AST (15-37) IU/L ALT (14-63) IU/L Alkaline Phosphatase (46-116) U/L Total Protein (6.4-8.2) g/dL Albumin (3.4-5.0) g/dL Globulin (2.6-4.0) g/dL Albumin/Globulin Ratio (0.9-1.6) Lipase (73-393) U/L Result Diagrams: 02/09/21 14:55 02/09/21 14:55 Sepsis Event Note - Evaluation Sepsis Screening Result: No Definite Risk - Focused Exam Vital Signs: Vital Signs Temp Pulse Resp BP Pulse Ox 02/09/21 14:38 36.3 C 63 16 135/91 H 100 - Problem List (1) Bowel obstruction SNOMED Code(s): 17452417 ICD Code: K56.609 - UNSP INTESTNL OBST, UNSP TO PARTIAL VERSUS COMPLETE OBST Status: Acute Current Visit: Yes (2) Anxiety SNOMED Code(s): 94129124 ICD Code: F41.9 - ANXIETY DISORDER, UNSPECIFIED Status: Acute Current Visit: Yes (3) Depression SNOMED Code(s): 39298655 ICD Code: F32.9 - MAJOR DEPRESSIVE DISORDER, SINGLE EPISODE, UNSPECIFIED Status: Acute Current Visit: Yes (4) Agoraphobia SNOMED Code(s): 73991561 ICD Code: F40.00 - AGORAPHOBIA, UNSPECIFIED Status: Acute Current Visit: Yes Problem List Initiated/Reviewed/Updated: Yes Orders Last 24hrs: Active Orders 24 hr Category Date Time Status Patient Status [ADT] Routine ADT 02/09/21 18:30 Active Ambulate [RC] ASDIRECTED Care 02/09/21 19:04 Active Antiembolic Devices [RC] PER UNIT ROUTINE Care 02/09/21 19:06 Active EKG Documentation Completion [RC] STAT Care 02/09/21 14:37 Active Gastrointestinal Tube Mgmt [RC] ASDIRECTED Care 02/09/21 18:08 Active Oxygen Therapy [RC] PRN Care 02/09/21 19:04 Active RT Aerosol Therapy [RC] ASDIRECTED Care 02/09/21 19:07 Active VTE/DVT Education [RC] PER UNIT ROUTINE Care 02/09/21 19:04 Active Vital Signs [RC] Q4H Care 02/09/21 19:04 Active Nothing per Oral Now Diet [DIET] Diet 02/09/21 Dinner Active Chest 1V Frontal [CR] Stat Exams 02/09/21 18:08 Ordered BMP [BASIC METABOLIC PANEL,BMP] [CHEM] AM Lab 02/10/21 05:11 Ordered CBC WITH AUTO DIFF [HEME] AM Lab 02/10/21 05:11 Ordered MAGNESIUM [CHEM] AM Lab 02/10/21 05:11 Ordered PHOSPHORUS [CHEM] AM Lab 02/10/21 05:11 Ordered Albuterol/Ipratropium [DuoNeb 3.0-0.5 MG/3 ML] Med 02/09/21 19:04 Active 3 ml NEB Q4HRRT PRN Lactated Ringers [Ringers, Lactated] 1,000 ml Med 02/09/21 19:15 Active IV ASDIRECTED Morphine Med 02/09/21 19:09 Active 1 mg IVPUSH Q4H PRN Ondansetron [Zofran] Med 02/09/21 19:09 Active 4 mg IVPUSH Q4H PRN Pantoprazole [ProTONIX IV] Med 02/10/21 09:00 Active 40 mg IV DAILY Sodium Chloride 0.9% [Saline Flush] Med 02/09/21 14:37 Active 10 ml FLUSH ASDIRECTED PRN Sodium Chloride 0.9% [Saline Flush] Med 02/09/21 14:37 Active 2.5 ml FLUSH ASDIRECTED PRN NG [Nasogastric Orogastric Tube Insertion] [OM.PC] Stat Ot 02/09/21 18:08 Ordered Saline Lock Insert [OM.PC] Stat Ot 02/09/21 14:38 Ordered Sequential Compression Device [OM.PC] Per Unit Routine Oth 02/09/21 19:05 Orde red Resuscitation Status Routine Resus Stat 02/09/21 19:04 Ordered Medication Orders Albuterol/Ipratropium (Albuterol/Ipratropium 3.0-0.5 Mg/3 Ml Neb Soln) 3 ml NEB Q4HRRT PRN PRN Reason: Shortness Of Breath/wheezing Lactated Ringer's (Ringers, Lactated) 1,000 mls @ 125 mls/hr IV ASDIRECTED MELVI Morphine Sulfate (Morphine 2 Mg/Ml Syringe) 1 mg IVPUSH Q4H PRN PRN Reason: Pain Ondansetron HCl (Ondansetron 4 Mg/2 Ml Sdv) 4 mg IVPUSH Q4H PRN PRN Reason: Nausea/Vomiting Pantoprazole Sodium (Pantoprazole 40 Mg Vial) 40 mg IV DAILY MELVI Sodium Chloride (Sodium Chloride 0.9% 10 Ml Syringe) 10 ml FLUSH ASDIRECTED PRN PRN Reason: Keep Vein Open Last Admin: 02/09/21 14:51 Dose: 10 ml Documented by: [id number] Sodium Chloride (Sodium Chloride 0.9% 2.5 Ml Syringe) 2.5 ml FLUSH ASDIRECTED PRN PRN Reason: Keep Vein Open Last Admin: 02/09/21 14:52 Dose: 2.5 ml Documented by: [id number] Assessment/Plan Comment:: Patient is a 45-year-old male admitted for small bowel obstruction CT abdomen noted NG tube has been placed in the ER which has been set on intermittent suction Surgery has been consulted by the ER physician and would be following the pat ient throughout the stay Currently patient will be kept n.p.o. status Ideally would avoid any opioids but given recent surgical history we will start patient on IV morphine as needed for shoulder pain IV PPI daily IV Zofran as needed for nausea vomiting Patient is extremely anxious will require some as needed medication for anxiety will start on IV Ativan, hold for sedation Ambulate as tolerated SCDs for DVT prophylaxis Monitor and replete electrolytes as needed
[2021-02-09] MEDS ORDERED: Haloperidol Lactate 5 MG/ML SDV IM ONE (19:16)
--- NOTE | 2021-02-09 20:34 | CR ---
Indication: Evaluated tube is coiled Technique: Portable chest/KUB Findings: Enteric tube distal tip probably in the proximal stomach, difficult to visualize given underpenetration of study and overlying soft tissues. Dictated by Jennifer Otero MD @ 02/09/2021 8:33:[address] Jennifer Otero @ Feb 09 2021 8:33PM
--- NOTE | 2021-02-09 20:35 | CR ---
Indication: Evaluated tube is coiled Technique: Portable chest/KUB Findings: Enteric tube distal tip probably in the proximal stomach, difficult to visualize given underpenetration of study and overlying soft tissues. Dictated by Jennifer Otero MD @ 02/09/2021 8:34:[address] Jennifer Otero @ Feb 09 2021 8:34PM
[2021-02-09] MEDS ORDERED: LORazepam 2 MG/ML SDV IVPUSH PRN (21:08)
[2021-02-09] MEDS ORDERED: Enoxaparin 40 MG/0.4 ML Syringe SUBCUT SCH (22:00)
[2021-02-09] MEDS: Lactated Ringers 1,000 ML IV SCH (22:06)
[2021-02-10 06:22] LABS: CARBON DIOXIDE,CO2 26.7 mmol/L (21.0-32.0)
[2021-02-10] MEDS: Lactated Ringers 1,000 ML IV SCH (07:28)
--- NOTE | 2021-02-10 07:59 | PCM.SN.2 ---
- Free Text/Narrative Note: pt seen, chart reviewed; resolved ileus, had BM, start PO full liquid; dc home on full liquid; advance regular diet tomorrow morning; fu w ortho surgery for r shoulder surgery; fu w me prn; tks for the consult and care of this pleasant gentleman; will sign off, recall if question; [id number]
[2021-02-10] MEDS ORDERED: Pantoprazole 40 MG Vial IV SCH (09:00)
[2021-02-10 09:02] VITALS: BP 143/79; PULSE 52
--- NOTE | 2021-02-10 10:17 | CONS ---
DATE OF CONSULTATION: 02/10/2021 DATE OF : 1975 PRIMARY CARE PHYSICIAN: Sobia Smith, Consult was called. The patient was seen shortly after. Question is ileus versus bowel obstruction. HISTORY OF PRESENT ILLNESS: The patient is a 45 years ago, obese, 300 pounds gentleman, status post right shoulder rotator cuff repair 3 days ago, seen at emergency room for increased abdominal pain. The patient denied having any bowel movement since the surgery. The patient was admitted to medical service for further management. An NG tube was placed; however, overnight, the patient self-removed, and this morning the patient remarked that he had a big BM and passing gas, no nausea, and hungry. ALLERGIES: Please refer to nursing for details. MEDICATION: Please refer to nursing for details. PAST SURGICAL HISTORY: Significant for hemorrhoidal procedure and endoscopy. 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 PHYSICAL EXAMINATION: GENERAL: A very pleasant gentleman in no acute distress. HEENT: Normocephalic and atraumatic. Sclerae are anicteric. LUNGS: Clear to auscultation. HEART: Regular rate and rhythm. ABDOMEN: Soft, nondistended. No pulsating tender midline abdominal structure. Nontender. Active bowel sounds. EXTREMITIES: Right shoulder surgical dressing intact. IMPRESSION: Resolved ileus and had a bowel movement. Recommend to start oral diet gently, like full liquid, and the patient can go home with full liquid and advanced to regular diet tomorrow. Follow up with the original surgeon for rotator cuff surgery, and follow up with me on as-needed basis. As always, thank you for the kind referral for the care and consult for this pleasant gentleman. I will sign off. Recall if question. MARIAN / GILBERTO /[id number] CLARIBEL
[2021-02-10] MEDS ORDERED: oxyCODONE 5 MG Tab PO PRN (11:31)
--- NOTE | 2021-02-10 12:28 | PCM.DCSUM1 ---
Discharge Summary - Hospital Course Brief History: 45-year-old male past medical history anxiety, depression, agoraphobia, recent right shoulder surgery on Wednesday in [place] presents for abdominal pain, no bowel movement in past 3 days. Patient notes that he has been on opioids for pain control from his recent surgery. He has been on multiple stool softeners but they have not really helped with passing any stool. Patient feels nauseous but so far has not had any episode of vomiting, patient denies passing any gas as well. Patient is complaining of abdominal pain he describes his abdominal pain is diffuse, coming in waves every 10 to 15 minutes, associated with nausea. Patient states that he is very prone to having ileus and has it in the past after appendectomy he was put on pain pills. In the ER abdominal CT was done which showed mildly prominent fluid-filled small bowel within the left abdomen with no transition point identified. Findings probably reflective of ileus versus low-grade obstruction no bowel wall thickening inflammatory change pneumonitis is present patent mesenteric vessels. Abundant stool was noted in the colon, fatty liver was noted as well. Dr. Fuller was consulted in the ER who recommended NG tube insertion on intermittent suction and admit to medicine for further management. Patient's lab work showed mild leukocytosis and slight renal insufficiency, patient was admitted for further management. Of note, patient had an episode of severe anxiety in the ER after the NG tube was put in so he received IV Ativan which helped to calm him down. Over the course of 24 hours surgery was consulted imaging indicated no obvious obstruction possible ileus however patient has now passed a large bowel movement has been tolerating liquid diet and denies any pain. Was insisting to be discharged today. There were no overnight events,, patient appears to be in no acute distress this morning and stable. Diagnosis: Stroke: No - Discharge Data Discharge Date: 02/10/21 Discharge Disposition: Home, Self-Care 01 Condition: Good - Referral to Home Health Primary Care Physician: Sobia Smith DO - Patient Summary/Data Consults: Consultations 02/09/21 21:38 Consult to Physician [CONS] Routine - Patient Instructions Diet: Full Liquid Diet Diet, Other: advance as tolerated Activity: As Tolerated Driving: Do Not Drive (pt had recent shpulder surgery and on narcotics for pain management ) Showering/Bathing: May Shower Wound/Incision Care: Keep Operative Site/Wound Site Clean and Dry Notify Provider of: Fever, Increased Pain, Swelling and Redness, Drainage, Nausea and/or Vomiting Other/Special Instructions: Please return to hospital in the event your symptoms return, you are unable to pass gas/ stool, tolerate a diet. In the interm please continue with liquid diet and advance as tolerated, increase activity as tolerated, and fiber intake. Also, please follow up with PCP closely following discharge. - Discharge Plan *PRESCRIPTION DRUG MONITORING PROGRAM REVIEWED*: Not Applicable *COPY OF PRESCRIPTION DRUG MONITORING REPORT IN PATIENT KELLY: Not Applicable Home Medications: Home Meds Hydrocodone/Acetaminophen [Vicodin Hp 10-300 mg Tablet] 1 dose PO ASDIRECTED 02/09/21 [History] ondansetron HCL [Zofran] 4 mg PO ASDIRECTED 02/09/21 [History] oxyCODONE 5 mg PO ASDIRECTED 02/09/21 [History] Oxygen Therapy Mode: Room Air Patient Handouts: Bowel Obstruction, [id number], Ileus Referrals: Sobia Smith DO [Primary Care Provider] - - Discharge Summary/Plan Comment DC Time >30 min.: No Discharge Summary/Plan Comment: Patient was admitted for observation due to ileus, which is now resolved patient this morning remains afebrile, stable and asymptomatic able to tolerate liquid diet. Per surgery consult is advised patient to adhere to a liquid diet for today and advance diet as tolerated, continue with appropriate hydration, fiber supplementation. Plan was discussed with patient to utilize Colace twice a day for stool softening, may advance to magnesium citrate if absolutely necessary. Encourage patient to continue with appropriate level of activity as he is 1 week postop for shoulder surgery on narcotics likely contributing to slowing of his bowels due to pain medication regimen. Advised not to drive while taking pain medication. Patient is to follow-up closely with his PCP next 1 to 2 days. He is to return to the hospital in the event his symptoms return, he develops any significant fever, chills, abdominal pain, inability to pass gas or bowel movements. - Patient Data Vitals - Most Recent: Last Vital Signs Temp 96.5 F L 02/10/21 09:00 Pulse 52 L 02/10/21 09:00 Resp 22 H 02/10/21 09:00 BP 143/79 H 02/10/21 09:00 Pulse Ox 95 02/10/21 09:00 Weight - Most Recent: 301 lb I&O - Last 24 hours: Intake & Output 02/09/21 02/10/21 02/10/21 22:59 06:59 14:59 Intake Total 0 868 Output Total 0 Balance 0 868 Lab Results - Last 24 hrs: Laboratory Results - last 24 hr 02/09/21 02/09/21 02/09/21 Range/Units 14:55 14:55 15:23 WBC 11.69 H (4.0-11.0) K/uL RBC 5.54 (4.50-5.90) M/uL Hgb 16.8 (13.0-17.0) g/dL Hct 50.1 H (38.0-50.0) % MCV 90.4 (80.0-98.0) fL MCH 30.3 (27.0-32.0) pg MCHC 33.5 (31.0-37.0) g/dL RDW Std Deviation 45.7 (28.0-62.0) fl RDW Coeff of Rosalino 14 (11.0-15.0) % Plt Count 228 (150-400) K/uL MPV 10.30 (7.40-12.00) fL Neut % (Auto) 77.9 (48.0-80.0) % Lymph % (Auto) 12.7 L (16.0-40.0) % Carter % (Auto) 8.6 (0.0-15.0) % Eos % (Auto) 0.6 (0.0-7.0) % Baso % (Auto) 0.2 (0.0-1.5) % Neut # (Auto) 9.1 H (1.4-5.7) K/uL Lymph # (Auto) 1.5 (0.6-2.4) K/uL Carter # (Auto) 1.0 H (0.0-0.8) K/uL Eos # (Auto) 0.1 (0.0-0.7) K/uL Baso # (Auto) 0.0 (0.0-0.1) K/uL Nucleated RBC % 0.0 /100WBC Nucleated RBCs # 0 K/uL INR APTT (18.6-31.3) SEC Sodium 135 L (136-148) mmol/L Potassium 4.4 (3.5-5.1) mmol/L Chloride 100 (98-107) mmol/L Carbon Dioxide 24.5 (21.0-32.0) mmol/L BUN 13 (7.0-18.0) mg/dL Creatinine 1.6 H (0.8-1.3) mg/dL Est Cr Clr Drug Dosing 62.65 mL/min Estimated GFR (MDRD) 46.6 ml/min Glucose 125 H (74-106) mg/dL Lactic Acid 1.9 (0.4-2.0) mmol/L Calcium 9.9 (8.5-10.1) mg/dL Phosphorus (2.6-4.7) mg/dL Magnesium 2.2 (1.8-2.4) mg/dL Total Bilirubin 1.0 (0.2-1.0) mg/dL AST 23 (15-37) IU/L ALT 44 (14-63) IU/L Alkaline Phosphatase 72 (46-116) U/L Total Protein 7.7 (6.4-8.2) g/dL Albumin 3.8 (3.4-5.0) g/dL Globulin 3.9 (2.6-4.0) g/dL Albumin/Globulin Ratio 1.0 (0.9-1.6) Lipase 189 (73-393) U/L 02/09/21 02/10/21 02/10/21 Range/Units 15:23 00:10 05:35 WBC 11.59 H (4.0-11.0) K/uL RBC 5.13 (4.50-5.90) M/uL Hgb 15.0 (13.0-17.0) g/dL Hct 47.5 (38.0-50.0) % MCV 92.6 (80.0-98.0) fL MCH 29.2 (27.0-32.0) pg MCHC 31.6 (31.0-37.0) g/dL RDW Std Deviation 46.6 (28.0-62.0) fl RDW Coeff of Rosalino 14 (11.0-15.0) % Plt Count 216 (150-400) K/uL MPV 10.90 (7.40-12.00) fL Neut % (Auto) 65.4 (48.0-80.0) % Lymph % (Auto) 21.7 (16.0-40.0) % Carter % (Auto) 10.4 (0.0-15.0) % Eos % (Auto) 2.3 (0.0-7.0) % Baso % (Auto) 0.2 (0.0-1.5) % Neut # (Auto) 7.6 H (1.4-5.7) K/uL Lymph # (Auto) 2.5 H (0.6-2.4) K/uL Carter # (Auto) 1.2 H (0.0-0.8) K/uL Eos # (Auto) 0.3 (0.0-0.7) K/uL Baso # (Auto) 0.0 (0.0-0.1) K/uL Nucleated RBC % 0.0 /100WBC Nucleated RBCs # 0 K/uL INR 1.00 APTT 28.0 (18.6-31.3) SEC Sodium 139 (136-148) mmol/L Potassium 4.0 (3.5-5.1) mmol/L Chloride 105 (98-107) mmol/L Carbon Dioxide 26.7 (21.0-32.0) mmol/L BUN 12 (7.0-18.0) mg/dL Creatinine 1.4 H (0.8-1.3) mg/dL Est Cr Clr Drug Dosing 71.60 mL/min Estimated GFR (MDRD) 54.3 ml/min Glucose 91 (74-106) mg/dL Lactic Acid (0.4-2.0) mmol/L Calcium 9.0 (8.5-10.1) mg/dL Phosphorus 3.0 (2.6-4.7) mg/dL Magnesium 2.5 H (1.8-2.4) mg/dL Total Bilirubin (0.2-1.0) mg/dL AST (15-37) IU/L ALT (14-63) IU/L Alkaline Phosphatase (46-116) U/L Total Protein (6.4-8.2) g/dL Albumin (3.4-5.0) g/dL Globulin (2.6-4.0) g/dL Albumin/Globulin Ratio (0.9-1.6) Lipase (73-393) U/L Med Orders - Current: Current Medications Albuterol/Ipratropium (Albuterol/Ipratropium 3.0-0.5 Mg/3 Ml Neb Soln) 3 ml NEB Q4HRRT PRN PRN Reason: Shortness Of Breath/wheezing Enoxaparin Sodium (Enoxaparin 40 Mg/0.4 Ml Syringe) 40 mg SUBCUT Q24H [facility] Last Admin: 02/09/21 22:13 Dose: 40 mg Documented by: Lactated Ringer's (Ringers, Lactated) 1,000 mls @ 125 mls/hr IV ASDIRECTED [facility] Last Admin: 02/10/21 07:28 Dose: 125 mls/hr Documented by: Lorazepam (Lorazepam 2 Mg/Ml Sdv) 1 mg IVPUSH Q4H PRN PRN Reason: Anxiety Last Admin: 02/09/21 22:11 Dose: 1 mg Documented by: Morphine Sulfate (Morphine 2 Mg/Ml Syringe) 1 mg IVPUSH Q4H PRN PRN Reason: Pain Last Admin: 02/10/21 08:51 Dose: 1 mg Documented by: Ondansetron HCl (Ondansetron 4 Mg/2 Ml Sdv) 4 mg IVPUSH Q4H PRN PRN Reason: Nausea/Vomiting Oxycodone HCl (Oxycodone 5 Mg Tab) 5 mg PO Q6H PRN PRN Reason: Pain Pantoprazole Sodium (Pantoprazole 40 Mg Vial) 40 mg IV DAILY [facility] Last Admin: 02/10/21 08:41 Dose: 40 mg Documented by: Sodium Chloride (Sodium Chloride 0.9% 10 Ml Syringe) 10 ml FLUSH ASDIRECTED PRN PRN Reason: Keep Vein Open Last Admin: 02/09/21 14:51 Dose: 10 ml Documented by: Sodium Chloride (Sodium Chloride 0.9% 2.5 Ml Syringe) 2.5 ml FLUSH ASDIRECTED PRN PRN Reason: Keep Vein Open Last Admin: 02/09/21 14:52 Dose: 2.5 ml Documented by: Discontinued Medications Haloperidol Lactate (Haloperidol Lactate 5 Mg/Ml Sdv) 5 mg IM ONETIME ONE Stop: 02/09/21 19:17 Last Admin: 02/09/21 21:33 Dose: Not Given Documented by: Hydromorphone HCl (Hydromorphone 1 Mg/Ml Syringe) 1 mg IVPUSH ONETIME ONE Stop: 02/09/21 14:38 Last Admin: 02/09/21 14:50 Dose: 1 mg Documented by: Hydromorphone HCl (Hydromorphone 1 Mg/Ml Syringe) 1 mg IVPUSH ONETIME ONE Stop: 02/09/21 17:15 Last Admin: 02/09/21 17:28 Dose: 1 mg Documented by: Sodium Chloride (Normal Saline) 1,000 mls @ 999 mls/hr IV .Bolus ONE Stop: 02/09/21 15:37 Last Admin: 02/09/21 14:49 Dose: 999 mls/hr Documented by: Iopamidol (Iopamidol 755 Mg/Ml 500 Ml Multipack Bottle) 100 ml IVPUSH ONETIME ONE Stop: 02/09/21 16:44 Last Admin: 02/09/21 16:44 Dose: 100 ml Documented by: Lorazepam (Lorazepam 2 Mg/Ml Sdv) 1 mg IVPUSH ONETIME ONE Stop: 02/09/21 18:50 Last Admin: 02/09/21 19:01 Dose: 1 mg Documented by: Ondansetron HCl (Ondansetron 4 Mg/2 Ml Sdv) 4 mg IVPUSH ONETIME ONE Stop: 02/09/21 14:38 Last Admin: 02/09/21 14:48 Dose: 4 mg Documented by:
== END 2021-02-10 12:25 | disposition home or self-care (01) ==
LOC: MW.ED 14:29 → MW.MS 18:30
PROVIDERS: ADMIT Student in an Organized Health Care Education/Training Program; ATTEND Student in an Organized Health Care Education/Training Program
DX: K56.609 Unspecified intestinal obstruction, unspecified as to partial versus complete obstruction (principal); D72.829 Elevated white blood cell count, unspecified; E66.9 Obesity, unspecified; F40.00 Agoraphobia, unspecified; Z98.890 Other specified postprocedural states; Z79.899 Other long term (current) drug therapy; Z90.49 Acquired absence of other specified parts of digestive tract
CPT/HCPCS: 36415; 71045; 74018; 74174; 80048; 80053; 83605; 83690; 83735; 84100; 85025; 85610; 85730; 93005; 96374; 96375; 96376; 99285; A9270; C9113; J1170; J1650; J2060; J2270; J2405; J7030; J7120; Q9967; 96372; G0378